=== PATIENT | female | born 1995 | race Caucasian/White ===

== ENCOUNTER 2017-03-06 13:38 | Emergency (ER) | payer SELFPAY ==
--- NOTE | 2017-03-06 15:01 | DIAGNOSTIC IMAGING REPORT ---
PROCEDURE: XR CHEST 1 VIEW INDICATION: OD TECHNIQUE: Portable AP view 01:57 p.m. COMPARISON: None. FINDINGS: Questionable right perihilar infiltrate. Heart and mediastinum are normal. Thorax is normal. IMPRESSION: 1. Questionable right perihilar infiltrate. Recommend follow-up two-view chest x-ray.
--- NOTE | 2017-03-06 17:30 | ED ORDER SUMMARY ---
..... Patient: VERNA WHITT OrderSheet [facility] VisitID: [id number] [place] [address] 21y, F Registration Date/Time: 03/06/2017 ORDER SHEET Weight: 61.6 kg (stated) Allergies: No Known Drug Allergy GENERAL ORDERS: Chest 1V Urgent (13:45 03/06/2017 Ernesto JENNINGS) (Ack 13:49 Farhan) (14:02 Debra) Fire Investigation Manager (Continuous) (13:45 03/06/2017 Ernesto JENNINGS) (13:49 SReitz R.N.) CBC w Diff Urgent (13:46 03/06/2017 Ernesto JENNINGS) (Ack 13:49 Farhan) (13:49 SReitz R.N.) CMP Urgent (13:46 03/06/2017 Ernesto JENNINGS) (Ack 13:49 Farhan) (13:49 SReitz R.N.) UA-Culture if indicated Urgent (13:46 03/06/2017 Ernesto JENNINGS) (Ack 13:49 Farhan) (13:57 SReitz R.N.) Amylase Urgent (13:46 03/06/2017 Ernesto JENNINGS) (Ack 13:49 Farhan) (13:49 SReitz R.N.) Lipase Urgent (13:46 03/06/2017 Ernesto JENNINGS) (Ack 13:49 Farhan) (13:49 SReitz R.N.) Urine Urgent (13:46 03/06/2017 Ernesto JENNINGS) (Ack 13:49 Farhan) (13:57 SReitz R.N.) Urine Drug Screen Urgent (13:46 03/06/2017 Ernesto JENNINGS) (Ack 13:49 Farhan) (13:57 SReitz R.N.) Ethyl Alcohol Urgent (13:46 03/06/2017 Ernesto JENNINGS) (Ack 13:49 Farhan) (13:49 SReitz R.N.) Salicylate Level Urgent (13:46 03/06/2017 Ernesto JENNINGS) (Ack 13:49 Farhan) (13:49 SReitz R.N.) Acetaminophen Level Urgent (13:46 03/06/2017 Ernesto JENNINGS) (Ack 13:49 ALEXoerner) (13:49 Juana R.N.) Oxygen (2 L/min) (NC) (13:46 03/06/2017 Ernesto JENNINGS) (13:49 Juana R.N.) Pulse oximeter (13:46 03/06/2017 Ernesto JENNINGS) (13:49 Juana R.N.) EKG - ER Stat (13:46 03/06/2017 Ernesto JENNINGS) (13:49 KHoerner) CPK Urgent (13:57 03/06/2017 Ernesto JENNINGS) (13:58 ALEXoerner) Troponin-I Urgent (13:57 03/06/2017 Ernesto JENNINGS) (13:58 ALEXoerner) D-Dimer Urgent (13:59 03/06/2017 Ernesto JENNINGS) (14:00 KHoerner) Serum Quantitative Urgent (14:08 03/06/2017 Juana SegoviaNLuis verbal order read back to Ernesto JENNINGS) (Ack 14:10 ALEXoegisel) (14:10 ALEXoerner) Serum Quantitative Urgent (14:17 03/06/2017 Ernesto JENNINGS) (14:18 ALEXoerlupillo) (Cancelled: Other14:29 Ernesto JENNINGS) MEDICATION ORDERS: Potassium Chloride PO 20 meq (NOW) (17:01 03/06/2017 Juana R.NLuis verbal order read back to Ernesto JENNINGS) (17:01 Juana R.N.) IV FLUIDS: IV NS : initial bolus 1000 mL (1000 mL/hr), then 200 mL/hr for 4h (NOW); Urgent (13:46 03/06/2017 Ernesto JENNINGS) (13:49 Juana R.N.) KCl IV 20 meq/100mL (Run no faster than 10 units/hr, HIGH ALERT MEDICATION, NOW, Run no faster than 10 mEq/hr) (14:56 03/06/2017 Ernesto JENNINGS) (Ack 14:59 Juana R.N.) (15:14 Juana R.N.) ORDER SHEET NOTES: [Electronically signed by Jess Brown R.N. (17:29 03/06/2017)] [Electronically locked/signed by Jess Brown R.N. (17:29 03/06/2017)]
--- NOTE | 2017-03-06 17:30 | ED NURSING NOTES ---
Clinical Report - Nurses [facility] [address] [place] [address] 03/06/2017 13:39 Patient: VERNA WHITT TRIAGE Triage time 13:30. Acuity: LEVEL 2. Chief Complaint: DRUG OVERDOSE (heroin and meth). Alert. No acute distress. ( Pt. found in car at a gas station appeared to be overdosing. PD called EMS to transport to ED.). SEPSIS SCREEN: Sepsis Screen. Negative (no infection suspected/documented). KEVIN COMA SCORE: Kevin Coma Scale: 15- eyes open spontaneously (4); best verbal response- oriented x 4 (5); best motor response- obeys commands (6). --13:47 Jess Brown R.N. 13:43 03/06/17. BP: 137/79. HR: 100. RR: 26. O2 saturation: 100%. Temp: 98.0 F. Pain level now 0/10. --13:47 Jess Brown R.N. ( per EMS: pt. was pulled over by PD and they ate all the meth and heroin they had inn the car.). --14:00 Jess Brown R.N. Weight: 61.6 kg stated. Height/Length: 63 inches Per Patient. BMI: 24.1. --13:45 Jess Brown R.N. Medications None. --13:46 Jess Brown R.N. Allergies No Known Drug Allergy. --13:46 Jess Bronw R.N. History Arrived by EMS. Historian: patient. Unaccompanied. Primary physician (none). This occurred today 45 minutes LINING PRINTER. Treatment LINING PRINTER: None. PAST MEDICAL HX: Immunizations: up-to-date. Last normal menstrual period- spotting last week. Pt. states she has a 4 month old baby. SOCIAL HX: Heavy tobacco smoker (cigarette)- less than 1 pack per day. History of heavy drug use: heroin, methamphetamines. (pt. states she smokes meth and heroin). No alcohol use. ABUSE ASSESSMENT: Abuse assessment: The patient was asked "Do you feel safe in your home?" and "Has anyone hurt you or threatened to hurt you?". No report of abuse. NUTRITIONAL RISK ASSESSMENT: The nutritional risk assessment revealed no deficiencies. FUNCTIONAL ASSESSMENT: Functional assessment: no impairments noted. LEARNING NEEDS ASSESSMENT: The learning needs assessment revealed no barriers. --13:47 Jess Brown R.N. Interventions ID band on patient. Transported via stretcher. --13:47 Jess Brown R.N. 13:44 03/06/2017 Site #1 started via IV in the right antecubital space with an 20g angiocath (accessed by EMS LINING PRINTER). --13:44 Jess Brown R.N. PHYSICAL ASSESSMENT 13:30. To room via stretcher. GENERAL / NEURO / PSYCH: Alert. Oriented X 4. Appears in no acute distress. Patient appears calm and cooperative. Gag reflex present. Patient's speech is slurred. RESPIRATORY: Respirations not labored. CVS: Capillary refill less than 2 seconds. GI / : Abdomen soft and nontender. SKIN: Skin intact. Skin is warm and dry. Affect appears within normal limits. --13:48 Jess Brown R.N. NURSING PROGRESS NOTES EKG time: (1335). EKG was ordered, performed by a tech and shown to the ED physician. --13:48 Jess Brown R.N. 13:35. sheet metal superintendent, pulse oximeter and NIBP monitor placed on patient; director cardiac- Lead II; monitor alarms on. Patient gowned. Head of bed elevated. Two patient identifiers checked. Call light placed in reach. Side rails up x 2. Bed placed in lowest position. Brakes of bed on. Patient ready for evaluation- chart flagged. --13:48 Jess Brown R.N. 13:49 03/06/2017 Started bag #1 1000 mL IV Fluids IV NS (Saline); at 1000 mL/hr over 1 hour(s) via site #1 via IV pump. Allergies verified and confirmed 5 rights. IV patency established. IV site checked: no pain, redness, or swelling. IV flushed thoroughly pre- and post-medication administration. --13:49 Jess Brown R.N. Patient ID band checked for patient name, birthdate and medical record number: patient confirmed. Instructions provided to collect clean catch urine and patient verbalized understanding. Catheterized urine collected with return of yellow-colored clear urine; sample sent to lab for urinalysis. Specimen labeled in the presence of the patient. --13:57 Jess Brown R.N. ( portable xray done at the bedside.). --13:57 Jess Brown R.N. EKG time: (1335). EKG was ordered, performed by a tech and shown to the ED physician. --14:01 Cassi Camejo 13:40. Armament Aircraft Mechanic provided for the general and rectal exam by the physician. --14:06 Jess Brown R.N. 14:21 03/06/17. BP: 111/74. HR: 105. RR: 20. O2 saturation: 100%. Temp: 98.0 F. --14:22 Cassi Camejo 14:30 03/06/17. BP: 111/74. HR: 100. RR: 16. O2 saturation: 100%. --14:30 Jess Brown R.N. The patient reports no complaints and she is calm and resting quietly. --14:30 Jess Brown R.N. 14:31 03/06/17. HR: 100 (regular and tachycardic). --14:31 Jess Brown R.N. 14:43 03/06/2017 Started bag #2 1000 mL IV Fluids IV NS (Saline); at 200 mL/hr over 4 hour(s) via site #1 via IV pump. Allergies verified and confirmed 5 rights. IV patency established. IV site checked: no pain, redness, or swelling. IV flushed thoroughly pre- and post-medication administration. --14:43 Flory Valladares R.N. 14:43 03/06/2017 IV Fluids IV NS Discontinued: bag #1 infused. Total amount infused: 1000 mL. IV patency established. IV site checked: no pain, redness, or swelling. IV flushed thoroughly. --14:43 Flory Valladares R.N. Critical value relayed to ED by slab puller. Critical value received by Jess Robles RN. K: 2.8. Critical value read back. Verified lab result and patient ID. Patient ID band checked for patient name, birthdate and medical record number. --14:51 Jess Brown R.N. 15:14 03/06/17. BP: 121/74. HR: 96. RR: 17. O2 saturation: 100%. Temp: 98.0 F. --15:14 Jess Brown R.N. 15:14 03/06/2017 Started 20 meq of KCL (Potassium Chloride) IVPB in bag #1 100 mL; at 50 mL/hr over 2 hour(s) via site #1 via IV pump. Allergies verified and confirmed 5 rights. IV patency established. IV site checked: no pain, redness, or swelling. IV flushed thoroughly pre- and post-medication administration. --15:14 Jess Brown R.N. ( reassessed IV site. Remains patent flushing and no sign of infiltration noted.). --16:20 Jess Brown R.N. 16:20 03/06/17. BP: 115/59. HR: 89. RR: 12. O2 saturation: 100%. --16:20 Jess Brown R.N. ( Pt. pulled off monitor leads. Refusing to have them placed back on. Pt. appears upset and is stating she is leaving. Pt. requesting the IV be stopped and removed or she will leave. Provider notified; orders received.). --16:56 Jess Brown R.N. 16:58 03/06/2017 KCL IVPB Discontinued: bag #1. Total amount infused: 90 mL. IV patency established. IV site checked: no pain, redness, or swelling. IV flushed thoroughly. --16:58 Jess Borwn R.N. 16:58 03/06/2017 IV Fluids IV NS Discontinued: bag #2 infused. Total amount infused: 400 mL. --16:58 Jess Brown R.N. 17:00 03/06/2017 Site #1 removed upon discharge. Catheter intact. Manual pressure and bandaid applied. --17:23 Jess Brown R.N. 17:01 03/06/2017 Potassium Chloride (Potassium Chloride ER) PO 20 meq given. Allergies verified and confirmed 5 rights. --17:01 Jess Brown R.N. ( 17:00 pt. c/o iv site hurting and stating she was going to leave if it was not pulled. Pt. educated on the importance of staying in the ED for further observation and to continue IV medications. Pt. instructed the police will be notified if further attempt to leave the department due to being under the influence and needing further monitoring; per MD.). --17:27 Jess Brown R.N. DISPOSITION / DISCHARGE The patient left the Emergency Department against medical advice. Notified the ED physician of patient departure. ( found pt. gown on the bed.). --17:28 Jess Brown R.N. Departure time: 17:15. --17:28 Jess Brown R.N. Locked/Released at 03/06/2017 17:29 by Jess Brown R.N.
--- NOTE | 2017-03-06 17:30 | ED CLINICAL REPORT ---
Clinical Report - Physicians/Mid Levels [facility] [address] [place] [address] 03/06/2017 13:39 Patient: VERNA WHITT Time Seen: 13:44. Arrived- By private vehicle. Historian- patient. History limited by intoxication. Physical Exam limited by intoxication. HISTORY OF PRESENT ILLNESS Chief Complaint: DRUG OVERDOSE. This occurred just prior to arrival. Toxic symptoms present in ED with drowsiness. Multiple drugs ingested- Heroin and Amphetamine. The symptoms are described as severe. (The patient and her boyfriend had been contacted by the [facility]'s Department. They ate the drugs they had with them to avoid getting caught. She subsequently developed pressure in her central chest and shortness of breath as well as palpitations.). REVIEW OF SYSTEMS Last normal menstrual period- about 2 weeks ago she had heavy bleeding. Then several days ago she had some spotting. 4. Para 3. No chills, fever, sweats, pedal edema or abdominal pain. No constipation, diarrhea, nausea, vomiting or urinary problems. She has had chest pain, difficulty breathing and palpitations. All systems otherwise negative, except as recorded above. SOCIAL HISTORY Heavy tobacco smoker (cigarette)- less than 1 pack per day. History of drug use: heroin, methamphetamines. Has poor social support. FAMILY HISTORY Denies family medical history. ADDITIONAL NOTES The nursing notes have been reviewed. PHYSICAL EXAM Vital Signs: 03/06/2017 13:43 BP: 137/79. HR: 100. RR: 26. O2 saturation: 100%. Temp: 98.0 F. Have been reviewed. Appearance: The patient is somnolent, has slurred speech and appears unkempt. Eyes: Pupils equal, round and reactive to light. No nystagmus. Extraocular movements normal. No abnormal funduscopic findings. ENT: Pharynx normal. Neck: Neck supple. No meningeal signs or carotid bruit. CVS: Tachycardia. No cardiac murmur. Respiratory: No respiratory distress. Breath sounds normal. Abdomen: Soft and nontender. No organomegaly. Back: Normal inspection. No CVA tenderness. : Normal external exam. No tenderness on bimanual exam. No pelvic mass. (no vaginal foreign bodies noted a female manager balance was present). Rectal: Rectal exam normal. Stool heme negative. (POC test reference range: negative). (no rectal foreign bodies noted a female manager balance was present). Skin: Skin warm and dry. Normal skin color. Normal skin turgor. Extremities: Extremities exhibit normal ROM. No calf tenderness. No lower extremity edema. Neuro: Alertness is decreased. LABS, X-RAYS, AND EKG EKG: Rate: 99. Non-specific ST segment / T wave abnormalities. Prior EKG unavailable. The study has been independently viewed by me. Chest X-ray: No acute disease. The X-rays were independently viewed by me. Laboratory Tests: UA-Culture if indicated: (JESSIE: 03/06/2017 13:50) ( [facility] 03/06/2017 14:18) Final results Test Result Flag Units (Reference) URINE COLOR YELLOW URINE APPEARANCE CLEAR URINE GLUCOSE NEGATIVE (NEGATIVE) URINE BILIRUBIN NEGATIVE (NEGATIVE) URINE KETONE NEGATIVE (NEGATIVE) URINE SPECIFIC GRAVITY 1.015 (1.010-1.030) URINE PH 7.5 (5.0-8.0) URINE PROTEIN NEGATIVE (NEGATIVE) URINE UROBILINOGEN 1.0 EU/dL (0.2-1.0) URINE NITRITE NEGATIVE (NEGATIVE) URINE BLOOD NEGATIVE (NEGATIVE) URINE LEUK ESTERASE NEGATIVE (NEGATIVE) URINE RBC RARE rbc/hpf (0-1) URINE WBC 0-1 wbc/hpf (0-1) URINE EPITHELIAL CELLS 1-3 EPI/hpf (0-5) URINE BACTERIA TRACE (<1+) (NONE SEEN) URINE COMMENT CULT NOT INDICATED URINE CULTURES ARE SET-UP BASED ON THE FOLLOWING CRITERIA:POSITIVE NITRITEPOSITIVE LEUKOCYTE ESTERASEGREATER THAN 10 WHITE BLOOD CELLSMODERATE (2+) OR GREATER BACTERIA Urine: (JESSIE: 03/06/2017 13:50) ( [facility] 03/06/2017 14:09) Final results Test Result Flag Units (Reference) URINE POSITIVE RECOMMENDED HCG QUANT TEST, VERY WEAK QUESTIONABLE RESULT. CBC w Diff: (JESSIE: 03/06/2017 13:50) ( [facility] 03/06/2017 14:05) Final results Test Result Flag Units (Reference) WHITE BLOOD COUNT 6.5 K/uL (4.5-11.5) RED BLOOD COUNT 4.84 M/uL (4.00-5.20) HEMOGLOBIN 13.4 gm/dL (12.0-16.0) HEMATOCRIT 40.5 % (36.0-46.0) MEAN CELL VOLUME 84 fL (80-100) MEAN CORPUSCULAR HGB 28 pg (26-34) MEAN CORPUSCULAR HGB CONC 33 g/dL (31-37) RED CELL DISTRIBUTION WIDTH 13.5 % (11.6-14.8) PLATELET COUNT 271 K/uL (150-400) LYMPH % 33.8 % (25-40) MONO % 3.6 % (3-14) GRANULOCYTE % 62.6 (53-90) [id number]: (JESSIE: 03/06/2017 14:56) ( [facility] 03/06/2017 15:31) Final results Test Result Flag Units (Reference) D-DIMER QUANTITATIVE < 0.27 L ug/mLFEU (0.27-0.52) The primary value of this quantitative assay relates toits negative predictive value (i.e. exclusion) of pulmonaryembolism/deep vein thrombosis/DIC.Elevated levels of d-dimer may also occur with:, age, cancer, inflammation, liver disease,post-op, infection, hematoma, coronary disease, peripheralarteriopathy, bleeding disorders and thrombolytic treatment.Results should be correlated with other clinical andradiological data.Testing Methodology: Latex Immunoassay Serum Quantitative: (JESSIE: 03/06/2017 13:56) ( [facility] 03/06/2017 14:53) Final results Test Result Flag Units (Reference) BETA HCG, QUANTITATIVE 33 mIU/mL REFERENCE RANGE:Adult Males: <2 mIU/mLNon- Females: <6 mIU/mL Females:Approximate Approximate hCGGestational Age Range (mIU/mL) 0-1 week 0-501-2 weeks 40-3002-3 weeks 100-40402-1 weeks 500-28723-2 months 5,000-200,0002-3 months 10,000-100,0002nd trimester 3,000-50,0003rd trimester 1,000-50,000 Urine Drug Screen: (JESSIE: 03/06/2017 13:50) ( [facility] 03/06/2017 14:34) Final results Test Result Flag Units (Reference) AMPHETAMINE/METHAMPHETAMINE POSITIVE H (NEGATIVE) SPECIMEN IS INSUFFICIENT FOR FURTHER TESTING. BARBITURATE NEGATIVE (NEGATIVE) BENZODIAZEPINE NEGATIVE (NEGATIVE) CANNABINOID NEGATIVE (NEGATIVE) COCAINE NEGATIVE (NEGATIVE) ECSTASY NEGATIVE (NEGATIVE) METHADONE NEGATIVE (NEGATIVE) OPIATE POSITIVE H (NEGATIVE) The urine drug screen is a qualitative screening test fordrug overdose and abuse. All screen results should beconsidered as presumptive.Drugs screened for are as follows:BenzodiazepinesCocaineAmphetamines/MetamphetaminesTHC (Tetrahydrocannabinol)OpiatesBarbituratesEcstasyMethadonePositive results are unconfirmed. For confirmation, notifythe lab for the specimen to be sent to the reference lab.All confirmations must be performed by a differentmethodology.The ingestion of natural herbal and plant productscontaining Ephedra/Ephedra metabolites can produce in urineone or more substances capable of cross reacting withamphetamine/methamphetamine immunoassays. These testsprovide a preliminary result only. A more specificalternative chemical method must be used to obtain aconfirmed analytical result. Salicylate Level: (JESSIE: 03/06/2017 13:50) ( [facility] 03/06/2017 14:20) Final results Test Result Flag Units (Reference) SALICYLATE 3.5 mg/dL (2.8-20) CMP: (JESSIE: 03/06/2017 13:50) ( [facility] 03/06/2017 14:56) Final results Test Result Flag Units (Reference) GLUCOSE 148 H mg/dL (70-110) BUN 6 L mg/dL (7-18) CREATININE 0.9 mg/dL (0.6-1.3) Estimated GFR >60 mL/min Estimated GFR- >60 mL/min Note: Persistent reduction over 3 months in eGFR<60 mL/min/1.73 m2 defines CKD. Patients with eGFR values>=60 mL/min/1.73 m2 may also have CKD if evidence ofpersistent proteinuria. Additional information may be foundat www.[email or web address].org. SODIUM 141 mmol/L (136-145) POTASSIUM 2.8 *L mmol/L (3.5-5.1) CRITICAL RESULTS CALLEDCalled to MERRY 03/06/17 1449Were 2 patient identifiers used? YESWas the result read back? YES CHLORIDE 104 mmol/L (98-107) CARBON DIOXIDE 25 mmol/L (21-32) CALCIUM 9.3 mg/dL (8.5-10.1) TOTAL PROTEIN 7.2 g/dL (6.4-8.2) ALBUMIN 3.8 g/dL (3.3-5.0) BILIRUBIN, TOTAL 0.3 mg/dL (0.0-1.0) ALKALINE PHOSPHATASE 65 U/L (46-116) AST (SGOT) 15 U/L (15-37) ALT (SGPT) 24 U/L (12-78) LIPASE 92 U/L (73-393) AMYLASE 37 U/L (25-115) ETHYL ALCOHOL <3 L mg/dL (3-10) ACETAMINOPHEN < 2.0 L ug/mL (10-30) CRITICAL RESULTS CALLEDCalled to 03/06/17 1446Were 2 patient identifiers used?Was the result read back? MAGNESIUM 2.0 mg/dL (1.8-2.4) . PROGRESS AND PROCEDURES Course of Care: nursing staff reported that the patient was agitated and wanted to leave. I spoke with the patient and explained to her my concerns regarding her low potassium. Additionally, I am concerned that her judgment is altered given her substance abuse. However, the patient eloped from the emergency department. I had reviewed her lab results with her prior to this. Patient is stable. Symptoms better. Physical exam findings are improved. Alert. Breath sounds normal. No respiratory distress. Tachycardic. Abdomen soft and nontender. Skin warm and dry. Patient/family counseled. Old medical records ordered. CLINICAL IMPRESSION Intentional multi-drug overdose with methamphetamine and heroin. . Chronic substance abuse- tobacco (cigarettes), heroin, methamphetamines. Hypokalemia INSTRUCTIONS Do not smoke- benefits of smoking cessation discussed (>3 -10 minutes). Seek medical help to quit smoking. No alcohol. (Seek assistance with substance abuse as discussed). Warnings: Further evaluation is necessary. GENERAL WARNINGS: Return or contact your physician immediately if your condition worsens or changes unexpectedly, if not improving as expected, or if other problems arise. Prescription Medications: K-Dur 10 mEq: take 1 orally every 24 hours. Dispense five (5). Substitution is permissible. vitamins: Take 1 orally every day. Dispense thirty (30). No refils. Substitution is permissible. (with folate) Understanding of the discharge instructions verbalized by patient. Follow-up with: [facility], , , [facility] [address] [place] [address] Follow up Wednesday. Call for the next available appointment. Follow-up with: Heriberto Ruiz MD, Obstetrics/Gynecology, , [facility], [address] [place] [address] Follow up Wednesday in two days. Call for the next available appointment. (Electronically signed by Mychal Guillen MD 03/06/2017 20:53)
--- NOTE | 2017-03-06 17:30 | ED ORDER SUMMARY ---
..... Patient: VERNA WHITT OrderSheet [facility] VisitID: [id number] [place] [address] 21y, F Registration Date/Time: 03/06/2017 ORDER SHEET Weight: 61.6 kg (stated) Allergies: No Known Drug Allergy GENERAL ORDERS: Chest 1V Urgent (13:45 03/06/2017 Ernesto JENNINGS) (Ack 13:49 Farhan) (14:02 Debra) Public Works Director (Continuous) (13:45 03/06/2017 Ernesto JENNINGS) (13:49 SReitz R.N.) CBC w Diff Urgent (13:46 03/06/2017 Ernesto JENNINGS) (Ack 13:49 Farhan) (13:49 SReitz R.N.) CMP Urgent (13:46 03/06/2017 Ernesto JENNINGS) (Ack 13:49 Farhan) (13:49 SReitz R.N.) UA-Culture if indicated Urgent (13:46 03/06/2017 Ernesto JENNINGS) (Ack 13:49 Farhan) (13:57 SReitz R.N.) Amylase Urgent (13:46 03/06/2017 Ernesto JENNINGS) (Ack 13:49 Farhan) (13:49 SReitz R.N.) Lipase Urgent (13:46 03/06/2017 Ernesto JENNINGS) (Ack 13:49 Farhan) (13:49 SReitz R.N.) Urine Urgent (13:46 03/06/2017 Ernesto JENNINGS) (Ack 13:49 Farhan) (13:57 SReitz R.N.) Urine Drug Screen Urgent (13:46 03/06/2017 Ernesto JENNINGS) (Ack 13:49 Farhan) (13:57 SReitz R.N.) Ethyl Alcohol Urgent (13:46 03/06/2017 Ernesto JENNINGS) (Ack 13:49 Farhan) (13:49 SReitz R.N.) Salicylate Level Urgent (13:46 03/06/2017 Ernesto JENNINGS) (Ack 13:49 Farhan) (13:49 SReitz R.N.) Acetaminophen Level Urgent (13:46 03/06/2017 Ernesto JENNINGS) (Ack 13:49 ALEXoerner) (13:49 Juana R.N.) Oxygen (2 L/min) (NC) (13:46 03/06/2017 Ernesto JENNINGS) (13:49 Juana R.N.) Pulse oximeter (13:46 03/06/2017 Ernesto JENNINGS) (13:49 Juana R.N.) EKG - ER Stat (13:46 03/06/2017 Ernesto JENNINGS) (13:49 KHoerner) CPK Urgent (13:57 03/06/2017 Ernesto JENNINGS) (13:58 ALEXoerner) Troponin-I Urgent (13:57 03/06/2017 Ernesto JENNINGS) (13:58 ALEXoerner) D-Dimer Urgent (13:59 03/06/2017 Ernesto JENNINGS) (14:00 KHoerner) Serum Quantitative Urgent (14:08 03/06/2017 Juana SegoviaNLuis verbal order read back to Ernesto JENNINGS) (Ack 14:10 ALEXoegisel) (14:10 ALEXoerner) Serum Quantitative Urgent (14:17 03/06/2017 Ernesto JENNINGS) (14:18 ALEXoerlupillo) (Cancelled: Other14:29 Ernesto JENNINGS) MEDICATION ORDERS: Potassium Chloride PO 20 meq (NOW) (17:01 03/06/2017 Juana R.NLuis verbal order read back to Ernesto JENNINGS) (17:01 Juana R.N.) IV FLUIDS: IV NS : initial bolus 1000 mL (1000 mL/hr), then 200 mL/hr for 4h (NOW); Urgent (13:46 03/06/2017 Ernesto JENNINGS) (13:49 Juana R.N.) KCl IV 20 meq/100mL (Run no faster than 10 units/hr, HIGH ALERT MEDICATION, NOW, Run no faster than 10 mEq/hr) (14:56 03/06/2017 Ernesto JENNINGS) (Ack 14:59 Juana R.N.) (15:14 Juana R.N.) ORDER SHEET NOTES: [Electronically signed by Jess Brown R.N. (17:29 03/06/2017)] [Electronically locked/signed by Jess Brown R.N. (17:29 03/06/2017)]
--- NOTE | 2017-03-06 17:30 | ED NURSING NOTES ---
Clinical Report - [facility] [address] [place] [address] 03/06/2017 13:39 Patient: VERNA WHITT TRIAGE Triage time 13:30. Acuity: LEVEL 2. Chief Complaint: DRUG OVERDOSE (heroin and meth). Alert. No acute distress. ( Pt. found in car at a gas station appeared to be overdosing. PD called EMS to transport to ED.). SEPSIS SCREEN: Sepsis Screen. Negative (no infection suspected/documented). KEVIN COMA SCORE: Kevin Coma Scale: 15- eyes open spontaneously (4); best verbal response- oriented x 4 (5); best motor response- obeys commands (6). --13:47 Jess Brown R.N. 13:43 03/06/17. BP: 137/79. HR: 100. RR: 26. O2 saturation: 100%. Temp: 98.0 F. Pain level now 0/10. --13:47 Jess Brown R.N. ( per EMS: pt. was pulled over by PD and they ate all the meth and heroin they had inn the car.). --14:00 Jess Brown R.N. Weight: 61.6 kg stated. Height/Length: 63 inches Per Patient. BMI: 24.1. --13:45 Jess Brown R.N. Medications None. --13:46 Jess Brown R.N. Allergies No Known Drug Allergy. --13:46 Jess Brown R.N. History Arrived by EMS. Historian: patient. Unaccompanied. Primary physician (none). 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 Treatment BIOMASS PRODUCTION MANAGER: None. PAST MEDICAL HX: Immunizations: up-to-date. Last normal menstrual period- spotting last week. Pt. states she has a 4 month old baby. SOCIAL HX: Heavy tobacco smoker (cigarette)- less than 1 pack per day. History of heavy drug use: heroin, methamphetamines. (pt. states she smokes meth and heroin). No alcohol use. ABUSE ASSESSMENT: Abuse assessment: The patient was asked "Do you feel safe in your home?" and "Has anyone hurt you or threatened to hurt you?". No report of abuse. NUTRITIONAL RISK ASSESSMENT: The nutritional risk assessment revealed no deficiencies. FUNCTIONAL ASSESSMENT: Functional assessment: no impairments noted. LEARNING NEEDS ASSESSMENT: The learning needs assessment revealed no barriers. --13:47 Jess Brown R.N. Interventions ID band on patient. Transported via stretcher. --13:47 Jess Brown R.N. 13:44 03/06/2017 Site #1 started via IV in the right antecubital space with an 20g angiocath (accessed by EMS BIOMASS PRODUCTION MANAGER). --13:44 Jess Brown R.N. PHYSICAL ASSESSMENT 13:30. To room via stretcher. GENERAL / NEURO / PSYCH: Alert. Oriented X 4. Appears in no acute distress. Patient appears calm and cooperative. Gag reflex present. Patient's speech is slurred. RESPIRATORY: Respirations not labored. CVS: Capillary refill less than 2 seconds. GI / : Abdomen soft and nontender. SKIN: Skin intact. Skin is warm and dry. Affect appears within normal limits. --13:48 Jess Brown R.N. NURSING PROGRESS NOTES EKG time: (1335). EKG was ordered, performed by a tech and shown to the ED physician. --13:48 Jess Brown R.N. 13:35. electronic device monitor, pulse oximeter and NIBP monitor placed on patient; athletic monitor- Lead II; monitor alarms on. Patient gowned. Head of bed elevated. Two patient identifiers checked. Call light placed in reach. Side rails up x 2. Bed placed in lowest position. Brakes of bed on. Patient ready for evaluation- chart flagged. --13:48 Jess Brown R.N. 13:49 03/06/2017 Started bag #1 1000 mL IV Fluids IV NS (Saline); at 1000 mL/hr over 1 hour(s) via site #1 via IV pump. Allergies verified and confirmed 5 rights. IV patency established. IV site checked: no pain, redness, or swelling. IV flushed thoroughly pre- and post-medication administration. --13:49 Jess Brown R.N. Patient ID band checked for patient name, birthdate and medical record number: patient confirmed. Instructions provided to collect clean catch urine and patient verbalized understanding. Catheterized urine collected with return of yellow-colored clear urine; sample sent to lab for urinalysis. Specimen labeled in the presence of the patient. --13:57 Jess Brown R.N. ( portable xray done at the bedside.). --13:57 Jess Brown R.N. EKG time: (1335). EKG was ordered, performed by a tech and shown to the ED physician. --14:01 Cassi Camejo 13:40. Hair Assistant provided for the general and rectal exam by the physician. --14:06 Jess Brown R.N. 14:21 03/06/17. BP: 111/74. HR: 105. RR: 20. O2 saturation: 100%. Temp: 98.0 F. --14:22 Cassi Camejo 14:30 03/06/17. BP: 111/74. HR: 100. RR: 16. O2 saturation: 100%. --14:30 Jess Brown R.N. The patient reports no complaints and she is calm and resting quietly. --14:30 Jess Brown R.N. 14:31 03/06/17. HR: 100 (regular and tachycardic). --14:31 Jess Brown R.N. 14:43 03/06/2017 Started bag #2 1000 mL IV Fluids IV NS (Saline); at 200 mL/hr over 4 hour(s) via site #1 via IV pump. Allergies verified and confirmed 5 rights. IV patency established. IV site checked: no pain, redness, or swelling. IV flushed thoroughly pre- and post-medication administration. --14:43 Flory Valladares R.N. 14:43 03/06/2017 IV Fluids IV NS Discontinued: bag #1 infused. Total amount infused: 1000 mL. IV patency established. IV site checked: no pain, redness, or swelling. IV flushed thoroughly. --14:43 Flory Valladares R.N. Critical value relayed to ED by phlebotomy lab assistant. Critical value received by Jess Robles RN. K: 2.8. Critical value read back. Verified lab result and patient ID. Patient ID band checked for patient name, birthdate and medical record number. --14:51 Jess Brown R.N. 15:14 03/06/17. BP: 121/74. HR: 96. RR: 17. O2 saturation: 100%. Temp: 98.0 F. --15:14 Jess Brown R.N. 15:14 03/06/2017 Started 20 meq of KCL (Potassium Chloride) IVPB in bag #1 100 mL; at 50 mL/hr over 2 hour(s) via site #1 via IV pump. Allergies verified and confirmed 5 rights. IV patency established. IV site checked: no pain, redness, or swelling. IV flushed thoroughly pre- and post-medication administration. --15:14 Jess Brown R.N. ( reassessed IV site. Remains patent flushing and no sign of infiltration noted.). --16:20 Jess Brown R.N. 16:20 03/06/17. BP: 115/59. HR: 89. RR: 12. O2 saturation: 100%. --16:20 Jess Brown R.N. ( Pt. pulled off monitor leads. Refusing to have them placed back on. Pt. appears upset and is stating she is leaving. Pt. requesting the IV be stopped and removed or she will leave. Provider notified; orders received.). --16:56 Jess Brown R.N. 16:58 03/06/2017 KCL IVPB Discontinued: bag #1. Total amount infused: 90 mL. IV patency established. IV site checked: no pain, redness, or swelling. IV flushed thoroughly. --16:58 Jess Brown R.N. 16:58 03/06/2017 IV Fluids IV NS Discontinued: bag #2 infused. Total amount infused: 400 mL. --16:58 Jess Brown R.N. 17:00 03/06/2017 Site #1 removed upon discharge. Catheter intact. Manual pressure and bandaid applied. --17:23 Jess Brown R.N. 17:01 03/06/2017 Potassium Chloride (Potassium Chloride ER) PO 20 meq given. Allergies verified and confirmed 5 rights. --17:01 Jess Brown R.N. ( 17:00 pt. c/o iv site hurting and stating she was going to leave if it was not pulled. Pt. educated on the importance of staying in the ED for further observation and to continue IV medications. Pt. instructed the police will be notified if further attempt to leave the department due to being under the influence and needing further monitoring; per MD.). --17:27 Jess Brown R.N. DISPOSITION / DISCHARGE The patient left the Emergency Department against medical advice. Notified the ED physician of patient departure. ( found pt. gown on the bed.). --17:28 Jess Brown R.N. Departure time: 17:15. --17:28 Jess Brown R.N. Locked/Released at 03/06/2017 17:29 by Jess Brown R.N.
--- NOTE | 2017-03-06 17:30 | ED CLINICAL REPORT ---
Clinical Report - Physicians/Mid Levels [facility] [address] [place] [address] 03/06/2017 13:39 Patient: VERNA WHITT Time Seen: 13:44. Arrived- By private vehicle. Historian- patient. History limited by intoxication. Physical Exam limited by intoxication. HISTORY OF PRESENT ILLNESS Chief Complaint: DRUG OVERDOSE. This occurred just prior to arrival. Toxic symptoms present in ED with drowsiness. Multiple drugs ingested- Heroin and Amphetamine. The symptoms are described as severe. (The patient and her boyfriend had been contacted by the [facility]'s Department. They ate the drugs they had with them to avoid getting caught. She subsequently developed pressure in her central chest and shortness of breath as well as palpitations.). REVIEW OF SYSTEMS Last normal menstrual period- about 2 weeks ago she had heavy bleeding. Then several days ago she had some spotting. 4. Para 3. No chills, fever, sweats, pedal edema or abdominal pain. No constipation, diarrhea, nausea, vomiting or urinary problems. She has had chest pain, difficulty breathing and palpitations. All systems otherwise negative, except as recorded above. SOCIAL HISTORY Heavy tobacco smoker (cigarette)- less than 1 pack per day. History of drug use: heroin, methamphetamines. Has poor social support. FAMILY HISTORY Denies family medical history. ADDITIONAL NOTES The nursing notes have been reviewed. PHYSICAL EXAM Vital Signs: 03/06/2017 13:43 BP: 137/79. HR: 100. RR: 26. O2 saturation: 100%. Temp: 98.0 F. Have been reviewed. Appearance: The patient is somnolent, has slurred speech and appears unkempt. Eyes: Pupils equal, round and reactive to light. No nystagmus. Extraocular movements normal. No abnormal funduscopic findings. ENT: Pharynx normal. Neck: Neck supple. No meningeal signs or carotid bruit. CVS: Tachycardia. No cardiac murmur. Respiratory: No respiratory distress. Breath sounds normal. Abdomen: Soft and nontender. No organomegaly. Back: Normal inspection. No CVA tenderness. : Normal external exam. No tenderness on bimanual exam. No pelvic mass. (no vaginal foreign bodies noted a female department chair was present). Rectal: Rectal exam normal. Stool heme negative. (POC test reference range: negative). (no rectal foreign bodies noted a female department chair was present). Skin: Skin warm and dry. Normal skin color. Normal skin turgor. Extremities: Extremities exhibit normal ROM. No calf tenderness. No lower extremity edema. Neuro: Alertness is decreased. LABS, X-RAYS, AND EKG EKG: Rate: 99. Non-specific ST segment / T wave abnormalities. Prior EKG unavailable. The study has been independently viewed by me. Chest X-ray: No acute disease. The X-rays were independently viewed by me. Laboratory Tests: UA-Culture if indicated: (JESSIE: 03/06/2017 13:50) ( [facility] 03/06/2017 14:18) Final results Test Result Flag Units (Reference) URINE COLOR YELLOW URINE APPEARANCE CLEAR URINE GLUCOSE NEGATIVE (NEGATIVE) URINE BILIRUBIN NEGATIVE (NEGATIVE) URINE KETONE NEGATIVE (NEGATIVE) URINE SPECIFIC GRAVITY 1.015 (1.010-1.030) URINE PH 7.5 (5.0-8.0) URINE PROTEIN NEGATIVE (NEGATIVE) URINE UROBILINOGEN 1.0 EU/dL (0.2-1.0) URINE NITRITE NEGATIVE (NEGATIVE) URINE BLOOD NEGATIVE (NEGATIVE) URINE LEUK ESTERASE NEGATIVE (NEGATIVE) URINE RBC RARE rbc/hpf (0-1) URINE WBC 0-1 wbc/hpf (0-1) URINE EPITHELIAL CELLS 1-3 EPI/hpf (0-5) URINE BACTERIA TRACE (<1+) (NONE SEEN) URINE COMMENT CULT NOT INDICATED URINE CULTURES ARE SET-UP BASED ON THE FOLLOWING CRITERIA:POSITIVE NITRITEPOSITIVE LEUKOCYTE ESTERASEGREATER THAN 10 WHITE BLOOD CELLSMODERATE (2+) OR GREATER BACTERIA Urine: (JESSIE: 03/06/2017 13:50) ( [facility] 03/06/2017 14:09) Final results Test Result Flag Units (Reference) URINE POSITIVE RECOMMENDED HCG QUANT TEST, VERY WEAK QUESTIONABLE RESULT. CBC w Diff: (JESSIE: 03/06/2017 13:50) ( [facility] 03/06/2017 14:05) Final results Test Result Flag Units (Reference) WHITE BLOOD COUNT 6.5 K/uL (4.5-11.5) RED BLOOD COUNT 4.84 M/uL (4.00-5.20) HEMOGLOBIN 13.4 gm/dL (12.0-16.0) HEMATOCRIT 40.5 % (36.0-46.0) MEAN CELL VOLUME 84 fL (80-100) MEAN CORPUSCULAR HGB 28 pg (26-34) MEAN CORPUSCULAR HGB CONC 33 g/dL (31-37) RED CELL DISTRIBUTION WIDTH 13.5 % (11.6-14.8) PLATELET COUNT 271 K/uL (150-400) LYMPH % 33.8 % (25-40) MONO % 3.6 % (3-14) GRANULOCYTE % 62.6 (53-90) [id number]: (JESSIE: 03/06/2017 14:56) ( [facility] 03/06/2017 15:31) Final results Test Result Flag Units (Reference) D-DIMER QUANTITATIVE < 0.27 L ug/mLFEU (0.27-0.52) The primary value of this quantitative assay relates toits negative predictive value (i.e. exclusion) of pulmonaryembolism/deep vein thrombosis/DIC.Elevated levels of d-dimer may also occur with:, age, cancer, inflammation, liver disease,post-op, infection, hematoma, coronary disease, peripheralarteriopathy, bleeding disorders and thrombolytic treatment.Results should be correlated with other clinical andradiological data.Testing Methodology: Latex Immunoassay Serum Quantitative: (JESSIE: 03/06/2017 13:56) ( [facility] 03/06/2017 14:53) Final results Test Result Flag Units (Reference) BETA HCG, QUANTITATIVE 33 mIU/mL REFERENCE RANGE:Adult Males: <2 mIU/mLNon- Females: <6 mIU/mL Females:Approximate Approximate hCGGestational Age Range (mIU/mL) 0-1 week 0-501-2 weeks 40-3002-3 weeks 100-37617-7 weeks 500-24000-8 months 5,000-200,0002-3 months 10,000-100,0002nd trimester 3,000-50,0003rd trimester 1,000-50,000 Urine Drug Screen: (JESSIE: 03/06/2017 13:50) ( [facility] 03/06/2017 14:34) Final results Test Result Flag Units (Reference) AMPHETAMINE/METHAMPHETAMINE POSITIVE H (NEGATIVE) SPECIMEN IS INSUFFICIENT FOR FURTHER TESTING. BARBITURATE NEGATIVE (NEGATIVE) BENZODIAZEPINE NEGATIVE (NEGATIVE) CANNABINOID NEGATIVE (NEGATIVE) COCAINE NEGATIVE (NEGATIVE) ECSTASY NEGATIVE (NEGATIVE) METHADONE NEGATIVE (NEGATIVE) OPIATE POSITIVE H (NEGATIVE) The urine drug screen is a qualitative screening test fordrug overdose and abuse. All screen results should beconsidered as presumptive.Drugs screened for are as follows:BenzodiazepinesCocaineAmphetamines/MetamphetaminesTHC (Tetrahydrocannabinol)OpiatesBarbituratesEcstasyMethadonePositive results are unconfirmed. For confirmation, notifythe lab for the specimen to be sent to the reference lab.All confirmations must be performed by a differentmethodology.The ingestion of natural herbal and plant productscontaining Ephedra/Ephedra metabolites can produce in urineone or more substances capable of cross reacting withamphetamine/methamphetamine immunoassays. These testsprovide a preliminary result only. A more specificalternative chemical method must be used to obtain aconfirmed analytical result. Salicylate Level: (JESSIE: 03/06/2017 13:50) ( [facility] 03/06/2017 14:20) Final results Test Result Flag Units (Reference) SALICYLATE 3.5 mg/dL (2.8-20) CMP: (JESSIE: 03/06/2017 13:50) ( [facility] 03/06/2017 14:56) Final results Test Result Flag Units (Reference) GLUCOSE 148 H mg/dL (70-110) BUN 6 L mg/dL (7-18) CREATININE 0.9 mg/dL (0.6-1.3) Estimated GFR >60 mL/min Estimated GFR- >60 mL/min Note: Persistent reduction over 3 months in eGFR<60 mL/min/1.73 m2 defines CKD. Patients with eGFR values>=60 mL/min/1.73 m2 may also have CKD if evidence ofpersistent proteinuria. Additional information may be foundat [email or web address]. SODIUM 141 mmol/L (136-145) POTASSIUM 2.8 *L mmol/L (3.5-5.1) CRITICAL RESULTS CALLEDCalled to MERRY 03/06/17 1449Were 2 patient identifiers used? YESWas the result read back? YES CHLORIDE 104 mmol/L (98-107) CARBON DIOXIDE 25 mmol/L (21-32) CALCIUM 9.3 mg/dL (8.5-10.1) TOTAL PROTEIN 7.2 g/dL (6.4-8.2) ALBUMIN 3.8 g/dL (3.3-5.0) BILIRUBIN, TOTAL 0.3 mg/dL (0.0-1.0) ALKALINE PHOSPHATASE 65 U/L (46-116) AST (SGOT) 15 U/L (15-37) ALT (SGPT) 24 U/L (12-78) LIPASE 92 U/L (73-393) AMYLASE 37 U/L (25-115) ETHYL ALCOHOL <3 L mg/dL (3-10) ACETAMINOPHEN < 2.0 L ug/mL (10-30) CRITICAL RESULTS CALLEDCalled to 03/06/17 1446Were 2 patient identifiers used?Was the result read back? MAGNESIUM 2.0 mg/dL (1.8-2.4) . PROGRESS AND PROCEDURES Course of Care: nursing staff reported that the patient was agitated and wanted to leave. I spoke with the patient and explained to her my concerns regarding her low potassium. Additionally, I am concerned that her judgment is altered given her substance abuse. However, the patient eloped from the emergency department. I had reviewed her lab results with her prior to this. Patient is stable. Symptoms better. Physical exam findings are improved. Alert. Breath sounds normal. No respiratory distress. Tachycardic. Abdomen soft and nontender. Skin warm and dry. Patient/family counseled. Old medical records ordered. CLINICAL IMPRESSION Intentional multi-drug overdose with methamphetamine and heroin. . Chronic substance abuse- tobacco (cigarettes), heroin, methamphetamines. Hypokalemia INSTRUCTIONS Do not smoke- benefits of smoking cessation discussed (>3 -10 minutes). Seek medical help to quit smoking. No alcohol. (Seek assistance with substance abuse as discussed). Warnings: Further evaluation is necessary. GENERAL WARNINGS: Return or contact your physician immediately if your condition worsens or changes unexpectedly, if not improving as expected, or if other problems arise. Prescription Medications: K-Dur 10 mEq: take 1 orally every 24 hours. Dispense five (5). Substitution is permissible. vitamins: Take 1 orally every day. Dispense thirty (30). No refils. Substitution is permissible. (with folate) Understanding of the discharge instructions verbalized by patient. Follow-up with: [facility], , , [facility] [address] [place] [address] Follow up Wednesday. Call for the next available appointment. Follow-up with: Heriberto Ruiz MD, Obstetrics/Gynecology, , [facility], [address] [place] [address] Follow up Wednesday in two days. Call for the next available appointment. (Electronically signed by Mychal Guillen MD 03/06/2017 20:53)
--- NOTE | 2017-03-06 20:54 | ED DISCHARGE INSTRUCTIONS ---
Patient: VERNA WHITT General Instructions [facility] VisitID: [id number] [address], [place], [place] [id number] 21y, F Registration Date/Time: 03/06/2017 Intentional multi-drug overdose with methamphetamine and heroin. . Chronic substance abuse- tobacco (cigarettes), heroin, methamphetamines. Hypokalemia INSTRUCTIONS Do not smoke- benefits of smoking cessation discussed (>3 -10 minutes). Seek medical help to quit smoking. No alcohol. (Seek assistance with substance abuse as discussed). Warnings: Further evaluation is necessary. GENERAL WARNINGS: Return or contact your physician immediately if your condition worsens or changes unexpectedly, if not improving as expected, or if other problems arise. Prescription Medications: K-Dur 10 mEq: take 1 orally every 24 hours. Dispense five (5). Substitution is permissible. vitamins: Take 1 orally every day. Dispense thirty (30). No refils. Substitution is permissible. (with folate) Understanding of the discharge instructions verbalized by patient. Follow-up with: [facility], , , [address], [place] [address] Follow up Wednesday. Call for the next available appointment. Follow-up with: Heriberto Ruiz MD, Obstetrics/Gynecology, , [facility], [address] [place] [address] Follow up Wednesday in two days. Call for the next available appointment. ADDITIONAL INFORMATION Drug Abuse Use and abuse of such drugs as marijuana, amphetamines (speed, crank), cocaine, heroin or prescription pain medicines (Vicodin, codeine), sedatives and sleeping pills (Valium, Klonopin), PCP, mescaline and LSD may lead to addiction or dependence. Once this occurs, you are at greater risk for any of the following: Craving for the drug and unable to stop using the drug even though you think you want to stop (psychological dependence) Drug withdrawal symptoms if you stop taking the drug (physical dependence) Loss of your job or your family Arrest, conviction and detention sentence for possession of an illegal substance or for driving under the influence of such a substance Accidental injuries to yourself or others while you are under the influence of the drug (in a car or at home). HIV infection (much greater risk if you use IV drugs) Other sexually transmitted diseases (herpes, chlamydia, gonorrhea and others) Severe and fatal infection of the heart valves (if you use IV drugs) Stroke, heart attack, hepatitis B or C, kidney failure from overdose Home Care: Admit you have a drug problem. Ask for help from your family and close friends. Seek professional help. This could be in the form of individual psychotherapy or counseling or an outpatient, inpatient, or residential drug treatment program. Join a self-help group for drug abuse. Avoid friends who abuse drugs themselves or tempt you to continue abusing drugs. Eat a balanced diet and begin a regular exercise program. Follow Up with your doctor or as advised by our staff. Contact one of the resources below for help. National [place] on Alcoholism and Drug Dependence www.ncadd.org 065-769-DIDG Narcotics Anonymous www.na.org 251-470-1856 National Alcohol and Substance Abuse Information Center (for referral to treatment programs) www.amSTATZcareIntivix 683-005-2515 Get Prompt Medical Attention if any of the following occur: Agitation, anxiety, unable to sleep Unintended weight loss (more than 10 to 15 pounds over 3 months) Seizure Chest pain Fever of 100.4F (38C) or higher, or as directed by your healthcare provider Excess drowsiness or inability to be awakened Shortness of breath Slow breathing under 8 breaths per minute Cough with colored sputum Redness, swelling or tenderness at an injection site Opiate Abuse Use and abuse of heroin or prescription pain medicines (Vicodin, codeine) may lead to physical ADDICTION or psychological DEPENDENCE. Once this occurs, you are at greater risk for any of the following: - Craving for the drug and unable to stop using the drug even though you think you want to stop (psychological dependence) - Drug withdrawal symptoms if you stop taking the drug (physical addiction) - Loss of your job or your family - Arrest, conviction and detention sentence for possession of an illegal substance or for driving under the influence of such a substance - Accidental injuries to yourself or others while you are under the influence of the drug (in a car or at home). - HIV infection (much greater risk if you use IV drugs) - Other sexually transmitted diseases (Herpes, chlamydia, gonorrhea and others) - Severe and fatal infection of the heart valves (if you use IV drugs) - Stroke, heart attack, hepatitis B or C, kidney failure - from overdose Home Care: 1) Admit you have a drug problem. Ask for help from your family and close friends. 2) Seek professional help. This could be individual psychotherapy, counseling, or a drug treatment program (outpatient or residential). 3) Join a self-help group for drug abuse. 4) Avoid friends who abuse drugs themselves or tempt you to continue your habit 5) Eat a balanced diet and begin a regular exercise program. Follow Up with your doctor or as advised by our staff. Contact one of the resources below for help. National [place] on Alcoholism and Drug Dependence, www.ncadd.org 983-526-VEDO Narcotics Anonymous (check your phone book for a local listing or call 319-451-3750) www.na.org National Alcohol and Substance Abuse Information Center (for referral to treatment programs) Www.[employer] 928-854-3369 Get Prompt Medical Attention if any of the following occur: -- Symptoms of withdrawal (agitation, anxiety, trembling, sweats, diarrhea, unable to sleep) -- Chest pain -- Unexplained fever over 100.4 F (38.0 C) -- Excessive drowsiness or inability to be awakened -- Slow breathing under 8 breaths per minute -- Shortness of breath or cough with colored sputum -- Redness, swelling or tenderness at an injection site How To Quit Smoking Smoking is one of the hardest habits to break. About half of all those who have ever smoked have been able to quit, and most of those (about 70%) who still smoke want to quit. Here are some of the best ways to stop smoking. Keep Trying: It takes most smokers about 8 tries before they are finally able to fully quit. So, the more often you try and fail, the better your chance of quitting the next time! So, don't give up! Go Cold Altha: Most ex-smokers quit cold turkey. Trying to cut back gradually doesn't seem to work as well, perhaps because it continues the smoking habit. Also, it is possible to fool yourself by inhaling more while smoking fewer cigarettes. This results in the same amount of nicotine in your body! Get Support: Support programs can make an important difference, especially for the heavy smoker. These groups offer lectures, methods to change your behavior and peer support. Call the free national Quitline for more information. 997-ZEND-WCA (470-661-4234). Low-cost or free programs are offered by many hospitals, local chapters of the [place] [employer] (651-658-7699) and the [place] [employer] (112-618-5615). Support at home is important too. Non-smokers can help by offering praise and encouragement. If the smoker fails to quit, encourage them to try again! Qyyc-Osu-Jyyfube Medicines: For those who can't quit on their own, Nicotine Replacement Therapy (NRT) may make quitting much easier. Certain aids such as the nicotine patch, gum and lozenge are available without a prescription. However, it is best to use these under the guidance of your doctor. The skin patch provides a steady supply of nicotine to the body. Nicotine gum and lozenge gives temporary bursts of low levels of nicotine. Both methods take the edge off the craving for cigarettes. WARNING: If you feel symptoms of nicotine overdose, such as nausea, vomiting, dizziness, weakness, or fast heartbeat, stop using these and see your doctor. Prescription Medicines: After evaluating your smoking patterns and prior attempts at quitting, your doctor may offer a prescription medicine such as bupropion (Zyban, Wellbutrin), varenicline (Chantix, Champix), a niocotine inhaler or nasal spray. Each has its unique advantage and side effects which your doctor can review with you. Health Benefits Of Quitting: The benefits of quitting start right away and keep improving the longer you go without smokin minutes: blood pressure and pulse return to normal 8 hours: oxygen levels return to normal 2 days: ability to smell and taste begins to improve as damaged nerves start to regrow 2-3 weeks: circulation and lung function improves 1-9 months: decreased cough, congestion and shortness of breath; less tired 1 year: risk of heart attack decreases by half 5 years: risk of lung cancer decreases by half; risk of stroke becomes the same as a non-smoker For information about how to quit smoking, visit the following links: National Cancer [place] , Clearing the Air, Quit Smoking Today - an online booklet. http://www.smokefree.gov/pubs/clearing_the_air.pdf Smokefree.gov http://smokefree.gov/ QuitNet http://www.quitnet.com/ Hypokalemia Hypokalemia means a low level of potassium in the blood. This most often occurs in patients who take diuretics (water pills). It can also occur due to severe vomiting or diarrhea. A mild case usually causes no symptoms. It is only found with blood testing. More severe potassium loss causes generalized weakness, muscle or abdominal cramping, heart palpitations (rapid or irregular heartbeats) and low blood pressure. Home Care: 1) Take any potassium supplements prescribed. 2) Eat foods rich in potassium. The highest amount is found in artichoke, baked potatoes, spinach, cantaloupe, honeydew melon, cod, halibut, salmon, and scallops. White, red, or iglesias beans are also very good sources. A modest amount is found in orange juice, bananas, carrots, and tomato juice. 3) Certain types of diuretics (water pills), such as Lasix (furosemide), require that you take potassium supplements for as long as you take the diuretic pills. If you are taking a diuretic, discuss the need for potassium supplements with your doctor. Follow Up with your doctor for a repeat blood test within the next week or as advised by our staff. Get Prompt Medical Attention if any of the following occur: -- Increased weakness -- Feeling dizzy -- Irregular heartbeat, extra beats or very fast heart rate -- Fainting spell Your exam today shows that you are . During , it is normal to develop tender swollen breasts, frequent urination and mild vaginal discharge. During the first three months, nausea is common. Guidelines For A Healthy : To ensure that your baby is born healthy there are certain things that you can do: When you feel tired, you should REST. This is especially true in the later months of . Your body needs more FLUIDS than you may be used to: You should drink 8-10 glasses of juice, milk or water. Eat well-balanced MEALS at regular intervals to supply your body with enough protein. You can expect a total weight gain of about 30 pounds during the . Do not try to diet or lose weight while you are . Because of the extra nutritional needs during , take one VITAMIN daily. Do not take any other MEDICINE during your (prescribed or [id number]-itxygkg) unless your doctor specifically recommends this. Many drugs can have harmful effects on the growing baby. If NAUSEA or VOMITING become a problem, avoid greasy and fried foods. Eat several smaller meals throughout the day rather than three large meals. If you SMOKE, you must stop. The nicotine you breathe in goes right to the baby. Stay away from ALCOHOL, even in moderate amounts. Daily drinking will harm your baby and can cause permanent brain damage. RECREATIONAL DRUGS are harmful, especially cocaine, crack, and heroin. Marijuana should also be avoided. If you were using recreational drugs or prescribed medicine when you found out that you were , talk to your doctor about possible effects on the fetus. Follow Up: Call to arrange for care. This can be provided by your family doctor, an manager company ( specialist) or a primary care clinic. Get Prompt Medical Attention if any of the following occur: Vaginal bleeding Moderate or severe abdominal or back pain Excessive vomiting, unable to keep any fluids down for six hours Burning with urination Headache, dizziness or rapid weight gain Your exam today shows that you are . During , it is normal to develop tender swollen breasts, frequent urination and mild vaginal discharge. During the first three months, nausea is common. Guidelines For A Healthy : To ensure that your baby is born healthy there are certain things that you can do: When you feel tired, you should REST. This is especially true in the later months of . Your body needs more FLUIDS than you may be used to: You should drink 8-10 glasses of juice, milk or water. Eat well-balanced MEALS at regular intervals to supply your body with enough protein. You can expect a total weight gain of about 30 pounds during the . Do not try to diet or lose weight while you are . Because of the extra nutritional needs during , take one VITAMIN daily. Do not take any other MEDICINE during your (prescribed or irob-fpr-soeizls) unless your doctor specifically recommends this. Many drugs can have harmful effects on the growing baby. If NAUSEA or VOMITING become a problem, avoid greasy and fried foods. Eat several smaller meals throughout the day rather than three large meals. If you SMOKE, you must stop. The nicotine you breathe in goes right to the baby. Stay away from ALCOHOL, even in moderate amounts. Daily drinking will harm your baby and can cause permanent brain damage. RECREATIONAL DRUGS are harmful, especially cocaine, crack, and heroin. Marijuana should also be avoided. If you were using recreational drugs or prescribed medicine when you found out that you were , talk to your doctor about possible effects on the fetus. Follow Up: Call to arrange for care. This can be provided by your family doctor, an manager company ( specialist) or a primary care clinic. Get Prompt Medical Attention if any of the following occur: Vaginal bleeding Moderate or severe abdominal or back pain Excessive vomiting, unable to keep any fluids down for six hours Burning with urination Headache, dizziness or rapid weight gain How To Quit Smoking Smoking is one of the hardest habits to break. About half of all those who have ever smoked have been able to quit, and most of those (about 70%) who still smoke want to quit. Here are some of the best ways to stop smoking. Keep Trying: It takes most smokers about 8 tries before they are finally able to fully quit. So, the more often you try and fail, the better your chance of quitting the next time! So, don't give up! Go Cold Altha: Most ex-smokers quit cold turkey. Trying to cut back gradually doesn't seem to work as well, perhaps because it continues the smoking habit. Also, it is possible to fool yourself by inhaling more while smoking fewer cigarettes. This results in the same amount of nicotine in your body! Get Support: Support programs can make an important difference, especially for the heavy smoker. These groups offer lectures, methods to change your behavior and peer support. Call the free national Quitline for more information. 655-VVBB-PRD (864-195-7012). Low-cost or free programs are offered by many hospitals, local chapters of the [place] [employer] (786-908-4137) and the [place] [employer] (845-433-9181). Support at home is important too. Non-smokers can help by offering praise and encouragement. If the smoker fails to quit, encourage them to try again! Kplt-Ein-Gxljiyb Medicines: For those who can't quit on their own, Nicotine Replacement Therapy (NRT) may make quitting much easier. Certain aids such as the nicotine patch, gum and lozenge are available without a prescription. However, it is best to use these under the guidance of your doctor. The skin patch provides a steady supply of nicotine to the body. Nicotine gum and lozenge gives temporary bursts of low levels of nicotine. Both methods take the edge off the craving for cigarettes. WARNING: If you feel symptoms of nicotine overdose, such as nausea, vomiting, dizziness, weakness, or fast heartbeat, stop using these and see your doctor. Prescription Medicines: After evaluating your smoking patterns and prior attempts at quitting, your doctor may offer a prescription medicine such as bupropion (Zyban, Wellbutrin), varenicline (Chantix, Champix), a niocotine inhaler or nasal spray. Each has its unique advantage and side effects which your doctor can review with you. Health Benefits Of Quitting: The benefits of quitting start right away and keep improving the longer you go without smokin minutes: blood pressure and pulse return to normal 8 hours: oxygen levels return to normal 2 days: ability to smell and taste begins to improve as damaged nerves start to regrow 2-3 weeks: circulation and lung function improves 1-9 months: decreased cough, congestion and shortness of breath; less tired 1 year: risk of heart attack decreases by half 5 years: risk of lung cancer decreases by half; risk of stroke becomes the same as a non-smoker For information about how to quit smoking, visit the following links: National Cancer [place] , Clearing the Air, Quit Smoking Today - an online booklet. http://www.smokefree.gov/pubs/clearing_the_air.pdf Smokefree.gov http://smokefree.gov/ QuitNet http://www.quitnet.com/ You have been given the following additional information: Drug Abuse Opiate Abuse Smoking Cessation Hypokalemia , New Dx , New Dx Smoking Cessation (Electronically signed by Mychal Guillen MD 03/06/2017 20:53)
--- NOTE | 2017-03-06 20:54 | ED MAR SUMMARY ---
..... Medication Administration Record [facility] [address] [place] [place] [address] Patient: VERNA WHITT Visit ID: [id number] 21y, F Weight: 61.6 kg Height/Length: 63 in BMI: 24.1 ALLERGIES: No Known Drug Allergy Start 13:49 03/06/2017 Jess Brown R.N., Stop 14:43 03/06/2017 Flory Valladares R.N. Medication Administered: IV NS (SALINE), Dose: IV Fluids over 1 hour(s), Rate: 1000 mL/hr, Dispensed: 1000 mL bag, Site: #1 right AC. Medication Ordered: IV NS : initial bolus 1000 mL (1000 mL/hr), then 200 mL/hr for 4h (NOW); Urgent. Start 14:43 03/06/2017 Flory Valladares R.N., Stop 16:58 03/06/2017 Jess Brown R.N. Medication Administered: IV NS (SALINE), Dose: IV Fluids over 4 hour(s), Rate: 200 mL/hr, Dispensed: 1000 mL bag, Site: #1 right AC. Medication Ordered: IV NS : initial bolus 1000 mL (1000 mL/hr), then 200 mL/hr for 4h (NOW); Urgent. Start 15:14 03/06/2017 Jess Brown R.N., Stop 16:58 03/06/2017 Jess Brown R.N. Medication Administered: KCL [IVPB] (POTASSIUM CHLORIDE), Dose: 20 meq IVPB over 2 hour(s), Rate: 50 mL/hr, Dispensed: 100 mL bag, Site: #1 right AC. Medication Ordered: KCl IV 20 meq/100mL (Run no faster than 10 units/hr, HIGH ALERT MEDICATION, NOW, Run no faster than 10 mEq/hr). Given 17:01 03/06/2017 Jess Brown R.N. Medication Administered: POTASSIUM CHLORIDE [PO] (POTASSIUM CHLORIDE ER), Dose: 20 meq PO. Medication Ordered: Potassium Chloride PO 20 meq (NOW).
--- NOTE | 2017-03-06 20:54 | ED MED RECONCILIATION SUMMARY ---
Patient: VERNA WHITT Medication Reconciliation Report [facility]erg[facility] With [facility] VisitID: [id number] [place] [address] 21y, F Registration Date/Time: 03/06/2017 Weight: 61.6 kg Height/Length: 63 in. BMI: 24.1 ALLERGIES: No Known Drug Allergy The patient's Home Medications are listed below: NONE. The source(s) of the original Home Medication information: Not obtained. The following Medications were given to the patient in the Emergency Department: IV NS IV Fluids bolus 0, then 1000 mL/hr, administered: 03/06/2017 1:49:00 PM IV NS IV Fluids bolus 0, then 200 mL/hr, administered: 03/06/2017 2:43:00 PM KCL [IVPB] IVPB bolus 0, then 20 meq 50 mL/hr, administered: 03/06/2017 3:14:00 PM Potassium Chloride [PO] PO 20 meq, administered: 03/06/2017 5:01:00 PM The following Medications were prescribed to the patient: K-Dur 10 mEq: take 1 orally every 24 hours. Dispense five (5). Substitution is permissible. -- Mychal Guillen MD vitamins: Take 1 orally every day. Dispense thirty (30). No refils. Substitution is permissible.(with folate) -- Mychal Guillen MD
--- NOTE | 2017-03-06 20:54 | ED MAR SUMMARY ---
..... Medication Administration Record [facility] [address] [place] [address] Patient: VERNA WHITT Visit ID: [id number] 21y, F Weight: 61.6 kg Height/Length: 63 in BMI: 24.1 ALLERGIES: No Known Drug Allergy Start 13:49 03/06/2017 Jess Brown R.N., Stop 14:43 03/06/2017 Flory Valladares R.N. Medication Administered: IV NS (SALINE), Dose: IV Fluids over 1 hour(s), Rate: 1000 mL/hr, Dispensed: 1000 mL bag, Site: #1 right AC. Medication Ordered: IV NS : initial bolus 1000 mL (1000 mL/hr), then 200 mL/hr for 4h (NOW); Urgent. Start 14:43 03/06/2017 Flory Valladares R.N., Stop 16:58 03/06/2017 Jess Brown R.N. Medication Administered: IV NS (SALINE), Dose: IV Fluids over 4 hour(s), Rate: 200 mL/hr, Dispensed: 1000 mL bag, Site: #1 right AC. Medication Ordered: IV NS : initial bolus 1000 mL (1000 mL/hr), then 200 mL/hr for 4h (NOW); Urgent. Start 15:14 03/06/2017 Jess Brown R.N., Stop 16:58 03/06/2017 Jess Brown R.N. Medication Administered: KCL [IVPB] (POTASSIUM CHLORIDE), Dose: 20 meq IVPB over 2 hour(s), Rate: 50 mL/hr, Dispensed: 100 mL bag, Site: #1 right AC. Medication Ordered: KCl IV 20 meq/100mL (Run no faster than 10 units/hr, HIGH ALERT MEDICATION, NOW, Run no faster than 10 mEq/hr). Given 17:01 03/06/2017 Jess Brown R.N. Medication Administered: POTASSIUM CHLORIDE [PO] (POTASSIUM CHLORIDE ER), Dose: 20 meq PO. Medication Ordered: Potassium Chloride PO 20 meq (NOW).
--- NOTE | 2017-03-06 20:54 | ED MED RECONCILIATION SUMMARY ---
Patient: VERNA WHITT Medication Reconciliation Report [facility] VisitID: [id number] [place] [address] 21y, F Registration Date/Time: 03/06/2017 Weight: 61.6 kg Height/Length: 63 in. BMI: 24.1 ALLERGIES: No Known Drug Allergy The patient's Home Medications are listed below: NONE. The source(s) of the original Home Medication information: Not obtained. The following Medications were given to the patient in the Emergency Department: IV NS IV Fluids bolus 0, then 1000 mL/hr, administered: 03/06/2017 1:49:00 PM IV NS IV Fluids bolus 0, then 200 mL/hr, administered: 03/06/2017 2:43:00 PM KCL [IVPB] IVPB bolus 0, then 20 meq 50 mL/hr, administered: 03/06/2017 3:14:00 PM Potassium Chloride [PO] PO 20 meq, administered: 03/06/2017 5:01:00 PM The following Medications were prescribed to the patient: K-Dur 10 mEq: take 1 orally every 24 hours. Dispense five (5). Substitution is permissible. -- Mychal Guillen MD vitamins: Take 1 orally every day. Dispense thirty (30). No refils. Substitution is permissible.(with folate) -- Mychal Guillen MD
--- NOTE | 2017-03-06 20:54 | ED DISCHARGE INSTRUCTIONS ---
Patient: VERNA WHITT General Instructions [facility] VisitID: [id number] [address], [place], [place] [id number] 21y, F Registration Date/Time: 03/06/2017 Intentional multi-drug overdose with methamphetamine and heroin. . Chronic substance abuse- tobacco (cigarettes), heroin, methamphetamines. Hypokalemia INSTRUCTIONS Do not smoke- benefits of smoking cessation discussed (>3 -10 minutes). Seek medical help to quit smoking. No alcohol. (Seek assistance with substance abuse as discussed). Warnings: Further evaluation is necessary. GENERAL WARNINGS: Return or contact your physician immediately if your condition worsens or changes unexpectedly, if not improving as expected, or if other problems arise. Prescription Medications: K-Dur 10 mEq: take 1 orally every 24 hours. Dispense five (5). Substitution is permissible. vitamins: Take 1 orally every day. Dispense thirty (30). No refils. Substitution is permissible. (with folate) Understanding of the discharge instructions verbalized by patient. Follow-up with: [facility], , , [address], [place] [id number] Follow up Wednesday. Call for the next available appointment. Follow-up with: Heriberto Ruiz MD, Obstetrics/Gynecology, , [facility], [address] [place] [address] Follow up Wednesday in two days. Call for the next available appointment. ADDITIONAL INFORMATION Drug Abuse Use and abuse of such drugs as marijuana, amphetamines (speed, crank), cocaine, heroin or prescription pain medicines (Vicodin, codeine), sedatives and sleeping pills (Valium, Klonopin), PCP, mescaline and LSD may lead to addiction or dependence. Once this occurs, you are at greater risk for any of the following: Craving for the drug and unable to stop using the drug even though you think you want to stop (psychological dependence) Drug withdrawal symptoms if you stop taking the drug (physical dependence) Loss of your job or your family Arrest, conviction and halfway sentence for possession of an illegal substance or for driving under the influence of such a substance Accidental injuries to yourself or others while you are under the influence of the drug (in a car or at home). HIV infection (much greater risk if you use IV drugs) Other sexually transmitted diseases (herpes, chlamydia, gonorrhea and others) Severe and fatal infection of the heart valves (if you use IV drugs) Stroke, heart attack, hepatitis B or C, kidney failure from overdose Home Care: Admit you have a drug problem. Ask for help from your family and close friends. Seek professional help. This could be in the form of individual psychotherapy or counseling or an outpatient, inpatient, or residential drug treatment program. Join a self-help group for drug abuse. Avoid friends who abuse drugs themselves or tempt you to continue abusing drugs. Eat a balanced diet and begin a regular exercise program. Follow Up with your doctor or as advised by our staff. Contact one of the resources below for help. National [place] on Alcoholism and Drug Dependence www.ncadd.org 927-279-RAUP Narcotics Anonymous www.na.org 912-502-8195 National Alcohol and Substance Abuse Information Center (for referral to treatment programs) www.Likely.cocareInterEx 396-640-1919 Get Prompt Medical Attention if any of the following occur: Agitation, anxiety, unable to sleep Unintended weight loss (more than 10 to 15 pounds over 3 months) Seizure Chest pain Fever of 100.4F (38C) or higher, or as directed by your healthcare provider Excess drowsiness or inability to be awakened Shortness of breath Slow breathing under 8 breaths per minute Cough with colored sputum Redness, swelling or tenderness at an injection site Opiate Abuse Use and abuse of heroin or prescription pain medicines (Vicodin, codeine) may lead to physical ADDICTION or psychological DEPENDENCE. Once this occurs, you are at greater risk for any of the following: - Craving for the drug and unable to stop using the drug even though you think you want to stop (psychological dependence) - Drug withdrawal symptoms if you stop taking the drug (physical addiction) - Loss of your job or your family - Arrest, conviction and halfway sentence for possession of an illegal substance or for driving under the influence of such a substance - Accidental injuries to yourself or others while you are under the influence of the drug (in a car or at home). - HIV infection (much greater risk if you use IV drugs) - Other sexually transmitted diseases (Herpes, chlamydia, gonorrhea and others) - Severe and fatal infection of the heart valves (if you use IV drugs) - Stroke, heart attack, hepatitis B or C, kidney failure - from overdose Home Care: 1) Admit you have a drug problem. Ask for help from your family and close friends. 2) Seek professional help. This could be individual psychotherapy, counseling, or a drug treatment program (outpatient or residential). 3) Join a self-help group for drug abuse. 4) Avoid friends who abuse drugs themselves or tempt you to continue your habit 5) Eat a balanced diet and begin a regular exercise program. Follow Up with your doctor or as advised by our staff. Contact one of the resources below for help. National [place] on Alcoholism and Drug Dependence, www.ncadd.org 031-831-RMRZ Narcotics Anonymous (check your phone book for a local listing or call 251-524-7909) www.na.org National Alcohol and Substance Abuse Information Center (for referral to treatment programs) Www.Playchemy 924-094-2993 Get Prompt Medical Attention if any of the following occur: -- Symptoms of withdrawal (agitation, anxiety, trembling, sweats, diarrhea, unable to sleep) -- Chest pain -- Unexplained fever over 100.4 F (38.0 C) -- Excessive drowsiness or inability to be awakened -- Slow breathing under 8 breaths per minute -- Shortness of breath or cough with colored sputum -- Redness, swelling or tenderness at an injection site How To Quit Smoking Smoking is one of the hardest habits to break. About half of all those who have ever smoked have been able to quit, and most of those (about 70%) who still smoke want to quit. Here are some of the best ways to stop smoking. Keep Trying: It takes most smokers about 8 tries before they are finally able to fully quit. So, the more often you try and fail, the better your chance of quitting the next time! So, don't give up! Go Cold [place]: Most ex-smokers quit cold turkey. Trying to cut back gradually doesn't seem to work as well, perhaps because it continues the smoking habit. Also, it is possible to fool yourself by inhaling more while smoking fewer cigarettes. This results in the same amount of nicotine in your body! Get Support: Support programs can make an important difference, especially for the heavy smoker. These groups offer lectures, methods to change your behavior and peer support. Call the free national Quitline for more information. 567-HYWP-LUG (543-536-6348). Low-cost or free programs are offered by many hospitals, local chapters of the [place] [employer] (568-452-5751) and the [place] [employer] (744-382-2112). Support at home is important too. Non-smokers can help by offering praise and encouragement. If the smoker fails to quit, encourage them to try again! Yvws-Zrl-Ifuwqpk Medicines: For those who can't quit on their own, Nicotine Replacement Therapy (NRT) may make quitting much easier. Certain aids such as the nicotine patch, gum and lozenge are available without a prescription. However, it is best to use these under the guidance of your doctor. The skin patch provides a steady supply of nicotine to the body. Nicotine gum and lozenge gives temporary bursts of low levels of nicotine. Both methods take the edge off the craving for cigarettes. WARNING: If you feel symptoms of nicotine overdose, such as nausea, vomiting, dizziness, weakness, or fast heartbeat, stop using these and see your doctor. Prescription Medicines: After evaluating your smoking patterns and prior attempts at quitting, your doctor may offer a prescription medicine such as bupropion (Zyban, Wellbutrin), varenicline (Chantix, Champix), a niocotine inhaler or nasal spray. Each has its unique advantage and side effects which your doctor can review with you. Health Benefits Of Quitting: The benefits of quitting start right away and keep improving the longer you go without smokin minutes: blood pressure and pulse return to normal 8 hours: oxygen levels return to normal 2 days: ability to smell and taste begins to improve as damaged nerves start to regrow 2-3 weeks: circulation and lung function improves 1-9 months: decreased cough, congestion and shortness of breath; less tired 1 year: risk of heart attack decreases by half 5 years: risk of lung cancer decreases by half; risk of stroke becomes the same as a non-smoker For information about how to quit smoking, visit the following links: National Cancer [place] , Clearing the Air, Quit Smoking Today - an online booklet. http://www.smokefree.gov/pubs/clearing_the_air.pdf Smokefree.gov http://smokefree.gov/ QuitNet http://www.quitnet.com/ Hypokalemia Hypokalemia means a low level of potassium in the blood. This most often occurs in patients who take diuretics (water pills). It can also occur due to severe vomiting or diarrhea. A mild case usually causes no symptoms. It is only found with blood testing. More severe potassium loss causes generalized weakness, muscle or abdominal cramping, heart palpitations (rapid or irregular heartbeats) and low blood pressure. Home Care: 1) Take any potassium supplements prescribed. 2) Eat foods rich in potassium. The highest amount is found in artichoke, baked potatoes, spinach, cantaloupe, honeydew melon, cod, halibut, salmon, and scallops. White, red, or iglesias beans are also very good sources. A modest amount is found in orange juice, bananas, carrots, and tomato juice. 3) Certain types of diuretics (water pills), such as Lasix (furosemide), require that you take potassium supplements for as long as you take the diuretic pills. If you are taking a diuretic, discuss the need for potassium supplements with your doctor. Follow Up with your doctor for a repeat blood test within the next week or as advised by our staff. Get Prompt Medical Attention if any of the following occur: -- Increased weakness -- Feeling dizzy -- Irregular heartbeat, extra beats or very fast heart rate -- Fainting spell Your exam today shows that you are . During , it is normal to develop tender swollen breasts, frequent urination and mild vaginal discharge. During the first three months, nausea is common. Guidelines For A Healthy : To ensure that your baby is born healthy there are certain things that you can do: When you feel tired, you should REST. This is especially true in the later months of . Your body needs more FLUIDS than you may be used to: You should drink 8-10 glasses of juice, milk or water. Eat well-balanced MEALS at regular intervals to supply your body with enough protein. You can expect a total weight gain of about 30 pounds during the . Do not try to diet or lose weight while you are . Because of the extra nutritional needs during , take one VITAMIN daily. Do not take any other MEDICINE during your (prescribed or [id number]-xlluoej) unless your doctor specifically recommends this. Many drugs can have harmful effects on the growing baby. If NAUSEA or VOMITING become a problem, avoid greasy and fried foods. Eat several smaller meals throughout the day rather than three large meals. If you SMOKE, you must stop. The nicotine you breathe in goes right to the baby. Stay away from ALCOHOL, even in moderate amounts. Daily drinking will harm your baby and can cause permanent brain damage. RECREATIONAL DRUGS are harmful, especially cocaine, crack, and heroin. Marijuana should also be avoided. If you were using recreational drugs or prescribed medicine when you found out that you were , talk to your doctor about possible effects on the fetus. Follow Up: Call to arrange for care. This can be provided by your family doctor, an sales service representative ( specialist) or a primary care clinic. Get Prompt Medical Attention if any of the following occur: Vaginal bleeding Moderate or severe abdominal or back pain Excessive vomiting, unable to keep any fluids down for six hours Burning with urination Headache, dizziness or rapid weight gain Your exam today shows that you are . During , it is normal to develop tender swollen breasts, frequent urination and mild vaginal discharge. During the first three months, nausea is common. Guidelines For A Healthy : To ensure that your baby is born healthy there are certain things that you can do: When you feel tired, you should REST. This is especially true in the later months of . Your body needs more FLUIDS than you may be used to: You should drink 8-10 glasses of juice, milk or water. Eat well-balanced MEALS at regular intervals to supply your body with enough protein. You can expect a total weight gain of about 30 pounds during the . Do not try to diet or lose weight while you are . Because of the extra nutritional needs during , take one VITAMIN daily. Do not take any other MEDICINE during your (prescribed or [id number]-ggffhse) unless your doctor specifically recommends this. Many drugs can have harmful effects on the growing baby. If NAUSEA or VOMITING become a problem, avoid greasy and fried foods. Eat several smaller meals throughout the day rather than three large meals. If you SMOKE, you must stop. The nicotine you breathe in goes right to the baby. Stay away from ALCOHOL, even in moderate amounts. Daily drinking will harm your baby and can cause permanent brain damage. RECREATIONAL DRUGS are harmful, especially cocaine, crack, and heroin. Marijuana should also be avoided. If you were using recreational drugs or prescribed medicine when you found out that you were , talk to your doctor about possible effects on the fetus. Follow Up: Call to arrange for care. This can be provided by your family doctor, an sales service representative ( specialist) or a primary care clinic. Get Prompt Medical Attention if any of the following occur: Vaginal bleeding Moderate or severe abdominal or back pain Excessive vomiting, unable to keep any fluids down for six hours Burning with urination Headache, dizziness or rapid weight gain How To Quit Smoking Smoking is one of the hardest habits to break. About half of all those who have ever smoked have been able to quit, and most of those (about 70%) who still smoke want to quit. Here are some of the best ways to stop smoking. Keep Trying: It takes most smokers about 8 tries before they are finally able to fully quit. So, the more often you try and fail, the better your chance of quitting the next time! So, don't give up! Go Cold [place]: Most ex-smokers quit cold turkey. Trying to cut back gradually doesn't seem to work as well, perhaps because it continues the smoking habit. Also, it is possible to fool yourself by inhaling more while smoking fewer cigarettes. This results in the same amount of nicotine in your body! Get Support: Support programs can make an important difference, especially for the heavy smoker. These groups offer lectures, methods to change your behavior and peer support. Call the free national Quitline for more information. 672-SXGF-CFX (550-900-5764). Low-cost or free programs are offered by many hospitals, local chapters of the [place] [employer] (670-702-3287) and the [place] [employer] (128-402-3813). Support at home is important too. Non-smokers can help by offering praise and encouragement. If the smoker fails to quit, encourage them to try again! Rgag-Wjx-Zefnuoq Medicines: For those who can't quit on their own, Nicotine Replacement Therapy (NRT) may make quitting much easier. Certain aids such as the nicotine patch, gum and lozenge are available without a prescription. However, it is best to use these under the guidance of your doctor. The skin patch provides a steady supply of nicotine to the body. Nicotine gum and lozenge gives temporary bursts of low levels of nicotine. Both methods take the edge off the craving for cigarettes. WARNING: If you feel symptoms of nicotine overdose, such as nausea, vomiting, dizziness, weakness, or fast heartbeat, stop using these and see your doctor. Prescription Medicines: After evaluating your smoking patterns and prior attempts at quitting, your doctor may offer a prescription medicine such as bupropion (Zyban, Wellbutrin), varenicline (Chantix, Champix), a niocotine inhaler or nasal spray. Each has its unique advantage and side effects which your doctor can review with you. Health Benefits Of Quitting: The benefits of quitting start right away and keep improving the longer you go without smokin minutes: blood pressure and pulse return to normal 8 hours: oxygen levels return to normal 2 days: ability to smell and taste begins to improve as damaged nerves start to regrow 2-3 weeks: circulation and lung function improves 1-9 months: decreased cough, congestion and shortness of breath; less tired 1 year: risk of heart attack decreases by half 5 years: risk of lung cancer decreases by half; risk of stroke becomes the same as a non-smoker For information about how to quit smoking, visit the following links: National Cancer [place] , Clearing the Air, Quit Smoking Today - an online booklet. http://www.smokefree.gov/pubs/clearing_the_air.pdf Smokefree.gov http://smokefree.gov/ QuitNet http://www.quitnet.com/ You have been given the following additional information: Drug Abuse Opiate Abuse Smoking Cessation Hypokalemia , New Dx , New Dx Smoking Cessation (Electronically signed by Mychal Guillen MD 03/06/2017 20:53)
== END 2017-03-06 17:15 | disposition left against medical advice (07) ==
LOC: ED SRH 13:38
DX: O99.320 Drug use complicating pregnancy, unspecified trimester (principal); F15.10 Other stimulant abuse, uncomplicated; F11.20 Opioid dependence, uncomplicated; O26.891 Other specified pregnancy related conditions, first trimester; E87.6 Hypokalemia; Z3A.00 Weeks of gestation of pregnancy not specified
CPT/HCPCS: 90004; 90074; 90100; 90197; 91556; 92010; 92235; 92530; 92720; 92760; 92761; 92762; 92763; 92764; 92765; 92766; 92767; 92780; 93070; 95059; 97000